=== PATIENT | male | born 1985 ===

== ENCOUNTER 2024-04-14 13:01 | Outpatient (AMB) | payer OTHER, SELFPAY ==
--- NOTE | 2024-04-14 13:10 | MHC.OFFWIV ---
Intake Vital Signs 04/14/24 13:12 04/14/24 13:17 Height 5 ft 11 in Weight 277 lb BMI 38.6 BP 124/80 Blood Pressure Location Lt brachial Position Sitting Pulse 96 Pulse Source Pulse Oximeter Pulse Oximetry (%) 98 Oxygen Delivery Method Room Air Intake Visit Reasons: [employer] WC burn Intake Note: Patient here for Chemical burn while trying to clean work equipment. Patient Tobacco Use Status: Never used Tobacco Allergies No Known Allergies Allergy (Verified 04/14/24 13:17) Do you need a note to return to daycare/school/sports/work: Yes HPI [employer] WC burn HPI Details This note is constructed using voice recognition software. While every effort has been made to ensure accuracy, telecommunications repairer errors may have been included. The patient is a 39 year old male who presents to the clinic today with chemical exposure from work. He reports that the chemical which includes sodium hydroxide, sodium hypochlorite, and dimethyldodicyclomine oxide/back at him landing next 2 or in his right eye, and then spilled on the floor. He then moved, slipped in the liquid, landing on his left hip in the chemical. He changed his clothing, and presented initially to be treated. He presents with the [facility] for the chemical. He reports burning sensation in his right side of his face, left hip area, as well as blurred vision in his right eye. He reports he does not wear glasses, but does not have perfect vision. [facility] Social History Patient Tobacco Use Status: Never used Tobacco Review of Systems Const All systems reviewed & are unremarkable except as noted in HPI and below Physical Exam Vital Signs: Last Vital Signs Pulse 96 04/14/24 13:17 BP 124/80 04/14/24 13:17 Pulse Ox 98 04/14/24 13:17 Oxygen Delivery Method Room Air 04/14/24 13:17 BMI result Body Mass Index 38.6 Const General: cooperative, healthy appearing, comfortable, no acute distress and well developed Orientation/consciousness: patient oriented x3 Limitations: no limitations Eyes Other: Instilled 1 drop tetracaine. Eye irrigated for 15 minutes with initial ph 6.0. Additional irrigation for 10 minutes with resulting ph 7. EOMI. Sclera injected. Surrounding structures intact. Resp Effort & Inspection: normal respiratory effort and able to speak in complete sentences Skin Other: ERythematous rash to left hip approximately 10 x 10 cm. No open lesions, discharge or warmth. Neuro General: patient oriented x3 Office Procedures Fluorescein eye exam Details: No corneal abrasion present on exam using fluorescein stain and tetracaine anesthetic. Vision Screening Right Eye: 20/25 Left Eye: 20/15 Bilateral: 20/15 Overall Vision Screening Results: Pass [id number] - Vision Screening Assessment & Plan Assessment & Plan (1) Chemical exposure: Code(s): Z77.098 - Contact with and (suspected) exposure to other hazardous, chiefly nonmedicinal, chemicals Plan: Patient presents today with chemical exposure to sodium hydroxide in both his right eye and on his skin of his face and left hip region. In office iron irrigation performed per MSDS for total of 25 minutes with normal ph resultant. EEN ointment sent for comfort despite lack of corneal abrasion. Patient has already changed his clothes, advised to clean skin with soap and water, and change his clothes again. Reviewed with patient need to wear protect eye protection with any potential repeat exposure. He should also continue to wear chemical resistant clothing as outlined on the material safety data sheet. Advised patient to follow up at [facility] early next week, as they are closed the remainder of this week. Plan See above for full details and plan. Medications: New erythromycin 0.5 inches ophthalmic (eye) TID 7 days 3.5 grams 0RF Coding Level of Care Code Est Pt Level 5 (36115) Diagnoses Chemical exposure Z77.098 CPT Codes Vision Screening - Vision Screenin - Vision Screening ([id number]) Time Spent (min) 45
[2024-04-14 13:12] VITALS: BMI 38.6
[2024-04-14 13:17] VITALS: BP 124/80; PULSE 96; O2SAT 98
== END 2024-04-14 14:32 | disposition home or self-care (01) ==
PROVIDERS: Visit Provider Registered Nurse
DX: H53.141 Visual discomfort, right eye (principal); Z77.098 Contact with and (suspected) exposure to other hazardous, chiefly nonmedicinal, chemicals; Z04.2 Encounter for examination and observation following work accident

== ENCOUNTER → 2024-04-14 13:01 | Outpatient (BNVA) | payer OTHER, SELFPAY | PROVIDERS: Visit Provider Registered Nurse | DX: Z77.098 Contact with and (suspected) exposure to other hazardous, chiefly nonmedicinal, chemicals (principal) | CPT/HCPCS: 99212 ==